=== PATIENT | female | born 1945 | race Caucasian/White ===

== ENCOUNTER 2018-07-19 13:27 | Observation (INO) ==
--- NOTE | 2018-07-19 14:49 | ED ---
HPI General Chief complaint: Dizziness Stated complaint: Dizziness/Head Complaint Time Seen by Provider: 07/19/18 14:20 Source: patient Mode of arrival: ambulatory Limitations: no limitations History of Present Illness HPI narrative: 73yo F with PMH of COPD, vertigo here with c/o episodes of lightheadedness and near syncope since head injury 06/23/18. Said she hit her head on glass and then hyperextended her neck and since then has been having these symptoms. Said she feels off balance and has neck pain. Said last episode was today when she was putting ornaments up, she felt lightheaded and almost passed out but did not. She said this does not feel like the room spinning she has with her vertigo. Denies any chest pain, sob, vomiting, abdominal pain, focal weakness or numbness. Related Data Home Medications Medication Instructions Recorded Confirmed aspirin [Aspir-81] 81 mg PO DAILY 04/23/18 07/19/18 coenzyme Q10 [Co Q-10] 1 tab PO DAILY 04/23/18 07/19/18 fluticasone-vilanterol [Breo 1 inh INHALATION DAILY 04/23/18 07/19/18 Ellipta] metoprolol tartrate 50 mg PO DAILY 04/23/18 07/19/18 omega 6-tre-shw-fish oil [Fish Oil] 1,000 mg PO DAILY 04/23/18 07/19/18 oxybutynin chloride 5 mg PO BID 04/23/18 07/19/18 albuterol sulfate 1 inh INHALATION Q4-6H PRN 07/19/18 07/19/18 Allergies Allergy/AdvReac Type Severity Reaction Status Date / Time amoxicillin Allergy Severe Rash, Verified 07/19/18 14:05 Generalized clavulanic acid Allergy Severe Rash Verified 07/19/18 14:05 celecoxib AdvReac Severe GI BLEED Verified 07/19/18 14:05 Review of Systems ROS: all other systems reviewed are negative PMFSH Social History Social History Substance History: No History of Abuse Second Hand Smoke Exposure: No Smoking Status: Current every day smoker Tobacco Type: Cigarettes How Often Do You Have a Drink Containing Alcohol: Monthly or less Recent Travel in [facility] within the Last 8 Weeks: No Recent Out of Country Travel within the Last 8 Weeks: No Immunization History Tetanus Immunization: >5 Years Exam Narrative Exam Narrative: GENERAL: 73yo F in mild distress. SKIN: Focused skin assessment warm/dry. HEAD: Atraumatic. Normocephalic. EYES: Pupils equal and round. No scleral icterus. No injection or drainage. ENT: No nasal bleeding or discharge. Mucous membranes pink and moist. NECK: Trachea midline. No JVD. CARDIOVASCULAR: Regular rate and rhythm. No murmur appreciated. RESPIRATORY: No accessory muscle use. Clear to auscultation. Breath sounds equal bilaterally. GASTROINTESTINAL: Abdomen soft, non-tender, nondistended. MUSCULOSKELETAL: No obvious deformities. No clubbing. No cyanosis. No edema. NEUROLOGICAL: Awake and alert. No obvious cranial nerve deficits. Motor grossly within normal limits in all extremities. Sensation intact. Normal speech. PSYCHIATRIC: Appropriate mood and affect; insight and judgment normal. Course Reevaluation(s) Reevaluation #1: 73-year-old female presents to the emergency department complaining of vertigo for nearly a month. She was initially evaluated by my attending, Dr. Zapata. We discussed this patient prior to results returning but states that even if the results were normal, she would like patient to be admitted. I had an extended discussion regarding this patient and the findings today. Currently her labs are stable. There is no evidence of systemic infection. Her CT and CTAs are without evidence of dissection or aneurysm. EKG shows sinus rhythm rate [address] elevation or depression. While in the emergency department today, she states that she has had 3 episodes of vertigo and lightheadedness while laying in bed. She also states that movement of her neck increases her vertigo but this is intermittent. She says normally her symptoms are less than 12 hours however, this is been nearly a month that she has had the symptoms. She says she did talk to her primary care physician who was going to order vestibular therapy. At this point, patient states that she is unable to drive because she is still concerned about her symptoms. I advised that she should stay for further evaluation with MRI, MRA and potentially neurologist consult. My concern is that the her symptoms are out of the ordinary for her and this is affecting her ADLs. Will admit patient for possible posterior CVA/TIA. I discussed my concerns and findings at length with her. I spoke with Dr. Doyle who agreed to the admission. Time: 18:17 Initial Documented Vital Signs Temperature 97.4 F L 07/19/18 13:51 Pulse Rate 62 07/19/18 13:51 Respiratory Rate 16 07/19/18 13:51 Blood Pressure 179/79 H 07/19/18 13:51 Pulse Oximetry 99 07/19/18 13:51 Last Documented Vital Signs Temperature 98.2 F 07/20/18 03:52 Pulse Rate 66 07/20/18 07:12 Respiratory Rate 18 07/20/18 07:12 Blood Pressure 120/59 L 07/20/18 03:52 Pulse Oximetry 95 07/20/18 07:12 Medical Decision Making MDM Narrative Medical decision making narrative: 73yo F here with more frequent episodes of dizziness since her head injury where she hyperextended her neck after hitting her neck. She has been having problems with her gait and lightheadedness as well as neck pain. Will need CTA to r/o vertebral artery injuries. Will place pt on cardiac monitoring, obtain EKG and labs. Pt will likely need to be admitted for near syncope work up given her age. Medical Screen Exam Complete: Yes Emergency Medical Condition: Yes Differential Diagnosis Differential Diagnosis: Vertebral artery dissection vs. posterior stroke vs. arrthymia vs. vertigo Lab Data Result diagrams: 07/19/18 15:00 07/19/18 15:00 Lab Results 07/19/18 07/19/18 07/19/18 Range/Units 15:00 15:00 18:00 WBC 10.0 (4.0-11.0) th/mm3 RBC 4.76 (4.00-5.30) mil/mm3 Hgb 15.4 H (11.6-15.3) gm/dL Hct 45.7 (35.0-46.0) % MCV 96.0 (80.0-100.0) fL MCH 32.2 (27.0-34.0) pg MCHC 33.6 (32.0-36.0) % RDW 13.5 (11.6-17.2) % Plt Count 244 (150-450) th/mm3 MPV 7.3 (7.0-11.0) fL Neut % (Auto) 64.2 (16.0-70.0) % Lymph % (Auto) 24.9 (9.0-44.0) % Bollinger % (Auto) 6.2 (0.0-8.0) % Eos % (Auto) 3.9 (0.0-4.0) % Baso % (Auto) 0.8 (0.0-2.0) % Neut # (Auto) 6.4 (1.8-7.7) th/mm3 Lymph # (Auto) 2.5 (1.0-4.8) th/mm3 Bollinger # (Auto) 0.6 (0.0-0.9) th/mm3 Eos # (Auto) 0.4 (0.0-0.4) th/mm3 Baso # (Auto) 0.1 (0.0-0.2) th/mm3 WBC Differential . Differential Comment Auto diff final Sodium 140 (136-145) meq/L Potassium 4.6 (3.5-5.1) meq/L Chloride 106 (98-107) meq/L Carbon Dioxide 27.8 (21.0-32.0) meq/L Anion Gap 6 (5-15) meq/L BUN 12 (7-18) mg/dL Creatinine 0.86 (0.50-1.00) mg/dL Estimated GFR 65 L (>89) mL/min Random Glucose 97 (74-106) mg/dL Calcium 9.1 (8.5-10.1) mg/dL Urine Color Yellow (Yellw/Straw) Urine Clarity Clear (Clear) Urine pH 5.0 (5.0-8.5) Ur Specific [place] 1.006 (1.002-1.035) Urine Protein Negative (Neg-Trace) mg/dL Urine Glucose (UA) Negative (Negative) mg/dL Urine Ketones Negative (Negative) mg/dL Urine Occult Blood Small H (Negative) Urine Nitrate Negative (Negative) Urine Bilirubin Negative (Negative) Urine Urobilinogen Less than 2 (Less than 2) mg/dL Ur Leukocyte Esterase Trace H (Negative) Urine RBC Less than 1 (0-3) /hpf Urine WBC 3 (0-5) /hpf Ur Squamous Epith Cells 4 (0-5) /hpf Micro UA Comment Culture not ind Ur Microscopic Review Not Reportable Urine Culture Comments Culture not ind Imaging Data Radiologist's impression: Carotid Doppler Study 07/19/18 00:00 CONCLUSION: 1. Right Internal Carotid Artery: No significant stenosis seen. 2. Left Internal Carotid Artery: Elevated velocities in the left internal carotid artery suggests a 50-69% stenosis. Head MRI 07/19/18 00:00 CONCLUSION: No acute intracranial findings. Head MRA 07/19/18 00:00 CONCLUSION: Brain MRA within normal limits. Head CT 07/19/18 14:39 CONCLUSION: 1. Negative CT Head non contrast. . Head CTA 07/19/18 14:39 CONCLUSION: 1. Negative CTA Head. . Neck CTA 07/19/18 14:39 CONCLUSION: 1. Mild atherosclerosis, without evidence for vascular dissection. 2. Moderate to severe emphysema. ECG Data EKG Prior to Arrival: No Attestation: I personally reviewed and interpreted this ECG as follows: Interpretation: NSR 62bpm. Normal axis. FL interval 138ms. TWI aVL, V2. No significant ST elevation or depression. Discharge Plan Discharge Disposition Patient Disposition: ED Admit(ED Internal Use Only) Discharge Condition Condition: Stable Discharge Order Discharge Orders: ED Use Only Admit Order (Routine); Ordered 07/19/18 Ordered By: Christina Clement Discharge Details Diagnosis: Intermittent lightheadedness, Vertigo Physicians Team ED Provider: Nery Zapata ED Midlevel Provider: Christina Clement Primary Care Provider: Prakash Joseph Attending Provider: Thao Casanova Other Providers: Sher Haider ; Desmond,Desmond Status ED Status: Left Department Discharge Information Discharge Date/Time: 07/19/18 20:38
[2018-07-19 15:22] LABS: Baso # (Auto) 0.1 th/mm3 (0.0-0.2); Baso % (Auto) 0.8 % (0.0-2.0); Eos # (Auto) 0.4 th/mm3 (0.0-0.4); Eos % (Auto) 3.9 % (0.0-4.0); Hematocrit 45.7 % (35.0-46.0); Hemoglobin 15.4 gm/dL (11.6-15.3); Lymph # (Auto) 2.5 th/mm3 (1.0-4.8); Lymph % (Auto) 24.9 % (9.0-44.0); Mean Corpuscular HGB Conc 33.6 % (32.0-36.0); Mean Corpuscular Hemoglobin 32.2 pg (27.0-34.0); Mean Platelet Volume 7.3 fL (7.0-11.0); Mono # (Auto) 0.6 th/mm3 (0.0-0.9); Mono % (Auto) 6.2 % (0.0-8.0); Neut # (Auto) 6.4 th/mm3 (1.8-7.7); Neut % (Auto) 64.2 % (16.0-70.0); Platelet Count 244 th/mm3 (150-450); Red Blood Count 4.76 mil/mm3 (4.00-5.30); Red Cell Distribution Width 13.5 % (11.6-17.2)
[2018-07-19 15:32] LABS: Calcium 9.1 mg/dL (8.5-10.1); Carbon Dioxide 27.8 meq/L (21.0-32.0); Potassium 4.6 meq/L (3.5-5.1)
--- NOTE | 2018-07-19 17:36 | CT ---
EXAM DATE: 07/19/2018 5:32 PM EST AGE/SEX: 73 years / Female INDICATIONS: Dizziness from fall one month ago. CLINICAL DATA: This is the patient's initial encounter. Patient reports that signs and symptoms have been present for 1 day and indicates a pain score of 0/10. MEDICAL/SURGICAL HISTORY: . Vertigo. None. RADIATION DOSE: 56.35 CTDI (mGy) COMPARISON: [facility], CTA HEAD W CONTRAST W 3D, 07/19/2018. . TECHNIQUE: CT of the head without contrast. Using automated exposure control and adjustment of the mA and/or kV according to patient size, radiation dose was kept as low as reasonably achievable to ob tain optimal diagnostic quality images. DICOM format image data is available electronically for revi ew and comparison. FINDINGS: Cerebrum: The ventricles are normal for age. No evidence of midline shift, mass lesion, hemorrhage or acute infarction. No extraaxial fluid collections are seen. Posterior Fossa: The cerebellum and brainstem are intact. The 4th ventricle is midline. The cerebe llopontine angle is unremarkable. Extracranial: The visualized portion of the orbits is intact. Skull: The calvaria is intact. No evidence of skull fracture. CONCLUSION: 1. Negative CT Head non contrast. . Electronically signed by: Carson Su MD Board Certified Radiologist 07/19/2018 5:34 PM EST
--- NOTE | 2018-07-19 17:47 | CT ---
EXAM DATE: 07/19/2018 5:43 PM EST AGE/SEX: 73 years / Female INDICATIONS: Dizziness from fall one month ago. CLINICAL DATA: This is the patient's initial encounter. Patient reports that signs and symptoms have been present for 1 day and indicates a pain score of 0/10. MEDICAL/SURGICAL HISTORY: . Vertigo. None. RADIATION DOSE: 8.83 CTDI (mGy) ; Combined studies COMPARISON: [facility] [place], CT HEAD W/O CONTRAST, 07/19/2018. . TECHNIQUE: Volumetric scanning was performed using a multi-row detector CT scanner during bolus infu ochoa of 80 ml Omnipaque 350 (iohexol) nonionic water-soluble contrast as a cumulative dose for multi ple exams. The data was post processed with a variety of visualization algorithms including full vo lume maximum intensity projection, multi-planar sliding thin slab reformation, curved planar reformat ion, and surface rendering techniques. Using automated exposure control and adjustment of the mA and /or kV according to patient size, radiation dose was kept as low as reasonably achievable to obtain o ptimal diagnostic quality images. DICOM format image data is available electronically for review and comparison. FINDINGS: There is excellent visualization of the major intracranial arteries out to the second-order branch ve ssels. There is no evidence for aneurysm, vessel truncation or stenosis, and no evidence for vascula r malformation. The left A1 segment is small in caliber compared to the right. CONCLUSION: 1. Negative CTA Head. . Electronically signed by: Carson Su MD Board Certified Radiologist 07/19/2018 5:45 PM EST
--- NOTE | 2018-07-19 18:06 | CT ---
EXAM DATE: 07/19/2018 5:55 PM EST AGE/SEX: 73 years / Female INDICATIONS: Dizziness and neck pain from fall one month ago. Evaluate for dissection. CLINICAL DATA: This is the patient's initial encounter. Patient reports that signs and symptoms have been present for 1 day and indicates a pain score of 7/10. MEDICAL/SURGICAL HISTORY: . Vertigo. None. RADIATION DOSE: 8.83 CTDI (mGy) ; Combined studies [place] [facility] [place]AST, 04/23/2018. . TECHNIQUE: Volumetric scanning was performed using a multirow detector CT scanner during bolus infus ion of 80 ml Omnipaque 350 (iohexol) nonionic water-soluble contrast as a cumulative dose for multip le exams. The data was postprocessed with a variety of visualization algorithms including full-volu me maximum intensity projection, multiplanar sliding thin-slab reformation, curved-planar reformation , and surface-rendering techniques. Using automated exposure control and adjustment of the mA and/or kV according to patient size, radiation dose was kept as low as reasonably achievable to obtain opti mal diagnostic quality images. DICOM format image data is available electronically for review and co mparison. Percent stenosis is calculated using the diameter of the stenotic region over the diameter of the nor mal distal internal carotid artery. FINDINGS: Aortic Arch: There is a three-vessel origin of the great vessels from the aorta. No evidence of ost ial narrowing Right Carotid: The common carotid artery is intact. The carotid bulb has a normal configuration wit hout ulceration or narrowing. The internal carotid artery lumen is smooth without stenosis. The ext ernal carotid artery is intact. Left Carotid: The common carotid artery is intact. The carotid bulb has a normal configuration with out ulceration or narrowing. The internal carotid artery lumen is smooth without stenosis. The exte rnal carotid artery is intact. Vertebrals: The vertebral arteries have a symmetric diameter. No stenotic lesions are seen. CONCLUSION: 1. Mild atherosclerosis, without evidence for vascular dissection. 2. Moderate to severe emphysema. Electronically signed by: Dontrell Charles MD Board Certified Radiologist 07/19/2018 6:04 PM EST
[2018-07-19 18:28] LABS: Bilirubin,Urine Negative (Negative); Glucose,Urine (UA) Negative (Negative); Leukocyte Esterase,Urine Trace (Negative); Nitrite,Urine Negative (Negative); Specific Gravity,Urine 1.006 (1.002-1.035); Squamous Epithelial Cell,Urine 4 /hpf (0-5)
[2018-07-19 18:29] LABS: Color,Urine Yellow (Yellw/Straw)
[2018-07-19 18:30] LABS: Clarity,Urine Clear (Clear)
[2018-07-19] MEDS ORDERED: Acetaminophen 325 MG Tablet PO PRN (18:30)
--- NOTE | 2018-07-19 19:17 | P.HPIM ---
History of Present Illness Primary Care Physician: Prakash Joseph MD Chief Complaint: Vertigo, Syncope History of Present Illness: Mrs. Peng is a 73-year-old female. She has come in secondary to vertigo with an episode of syncope. She says that about 1 month ago she was struck in the head with a door accidentally. Since this time she has had intermittent vertigo which has been inhibiting her lifestyle. She also will drive because recently she attempted to drive and she had a syncopal episode. Her vertigo episodes are triggered by the position of her head and her not chronic but intermittent. No headaches reported. No changes in vision. COPD is present at baseline. Review of Systems Constitutional: No fevers, no chills no night sweats, no fatigue, no weakness Eyes: No eye pain, no blurry vision, no loss of vision ENT: No sore throat, no ear pain, no rhinorrhea Cardiovascular: No chest pain, no tachycardia, no palpitations Respiratory: No wheezing, no cough, no shortness of breath Gastrointestinal: No abdominal pain, no black tarry stools, no bright red blood per rectum, no vomiting, no diarrhea Musculoskeletal: No joint pain, no muscle cramps, no stiffness Integumentary: No rash, no ulcers, no drainage Neurologic: No sensory loss, no loss of motor function, dizziness, vertigo, syncope Psychiatric: No behavioral changes, no hallucinations, no suicidal ideations PMFSH Family History Family History Other Arthritis Social History Social History Substance History: No History of Abuse Second Hand Smoke Exposure: Yes Smoking Status: Current every day smoker Tobacco Type: Cigarettes How Often Do You Have a Drink Containing Alcohol: Monthly or less Recent Travel in [place] within the Last 8 Weeks: No Recent Out of Country Travel within the Last 8 Weeks: No Immunization History Tetanus Immunization: >5 Years Medications and Allergies Allergies Allergy/AdvReac Type Severity Reaction Status Date / Time amoxicillin Allergy Severe Rash, Verified 07/19/18 14:05 Generalized clavulanic acid Allergy Severe Rash Verified 07/19/18 14:05 celecoxib AdvReac Severe GI BLEED Verified 07/19/18 14:05 Home Medications Medication Instructions Recorded Confirmed Type aspirin [Aspir-81] 81 mg PO DAILY 04/23/18 07/19/18 History coenzyme Q10 [Co Q-10] 1 tab PO DAILY 04/23/18 07/19/18 History fluticasone-vilanterol [Breo 1 inh INHALATION DAILY 04/23/18 07/19/18 History Ellipta] metoprolol tartrate 50 mg PO DAILY 04/23/18 07/19/18 History omega 8-vgg-hny-fish oil [Fish Oil] 1,000 mg PO DAILY 04/23/18 07/19/18 History oxybutynin chloride 5 mg PO BID 04/23/18 07/19/18 History albuterol sulfate 1 inh INHALATION Q4-6H PRN 07/19/18 07/19/18 History Active Medications: Active Medications Acetaminophen (Tylenol) 650 mg PO Q4H PRN PRN Reason: Temp > 100.4 Al Hydroxide/Mg Hydroxide (Milk Of Jennifer Scnheider) 30 ml PO Q12H PRN PRN Reason: Mild Constipation Albuterol (Duoneb Neb (Lynne)) 1 ampul NEB Q6HR WHILE AWAKE NEB LYNNE Clonidine HCl (Catapres) 0.1 mg PO Q6H PRN PRN Reason: SYS BP GREATER THAN 160 MMHG Enalaprilat (Vasotec Inj) 1.25 mg IV.PUSH Q6H PRN PRN Reason: SBP>160, DBP>90 Meclizine HCl (Antivert) 25 mg PO Q8H LYNNE Meclizine HCl (Antivert) 25 mg PO ONCE ONE Stop: 07/19/18 19:14 Ondansetron HCl (Zofran Inj) 4 mg IV.PUSH Q6H PRN PRN Reason: NAUSEA OR VOMITING Sodium Chloride (Ns Flush) 2 ml IV.FLUSH BID LYNNE Sodium Chloride (Ns Flush) 2 ml IV.FLUSH PRN PRN PRN Reason: FLUSH AFTER USING IV ACCESS Physical Exam Vital signs: Last Vital Signs Temp 97.4 F L 07/19/18 13:51 Pulse 62 07/19/18 13:51 Resp 16 07/19/18 13:51 BP 179/79 H 07/19/18 13:51 Pulse Ox 99 07/19/18 13:51 Narrative: GENERAL: NAD, A&Ox3 HEAD: Normocephalic. NECK: Supple, trachea midline. No lymphadenopathy. EYES: No scleral icterus. No injection or drainage. CARDIOVASCULAR: Regular rate and rhythm without murmurs, gallops, or rubs. RESPIRATORY: Breath sounds equal bilaterally. No accessory muscle use. GASTROINTESTINAL: Abdomen soft, non-tender, nondistended. MUSCULOSKELETAL: No cyanosis, or edema. SKIN: Warm and dry. NEURO: No focal neurological deficits. Results Labs CBC & Chem 7: 07/19/18 15:00 07/19/18 15:[address] 07/19/18 14:39 CONCLUSION: 1. Negative CT Head non contrast. . Head CTA 07/19/18 14:39 CONCLUSION: 1. Negative CTA Head. . Neck CTA 07/19/18 14:39 CONCLUSION: 1. Mild atherosclerosis, without evidence for vascular dissection. 2. Moderate to severe emphysema. Caprini VTE Risk Assessment Caprini VTE Risk Assessment: No/Low Risk (score <= 1) Caprini Risk Assessment Model: Point Value = 1 Point Value = 2 Point Value = 3 Point Value = 5 Age 41-60 Minor surgery BMI > 25 kg/m2 Swollen legs Varicose veins or History of unexplained or recurrent spontaneous Oral contraceptives or hormone replacement Sepsis (< 1 month) Serious lung disease, including pneumonia (< 1 month) Abnormal pulmonary function Acute myocardial infarction Congestive heart failure (< 1 month) History of inflammatory bowel disease Medical patient at bed rest Age 61-74 Arthroscopic surgery Major open surgery (> 45 min) Laparoscopic surgery (> 45 min) Malignancy Confined to bed (> 72 hours) Immobilizing plaster cast Central venous access Age >= 75 History of VTE Family history of VTE Factor V Leiden Prothrombin [id number] Lupus anticoagulant Anticardiolipin antibodies Elevated serum homocysteine Heparin-induced thrombocytopenia Other congenital or acquired thrombophilia Stroke (< 1 month) Elective arthroplasty Hip, pelvis, or leg fracture Acute spinal cord injury (< 1 month) Prophylaxis Regimen: Total Risk Factor Score Risk Level Prophylaxis Regimen 0-1 Low Early ambulation 2 Moderate Order ONE of the following: *Sequential Compression Device (SCD) *Heparin 5000 units SQ BID 3-4 Higher Order ONE of the following medications: *Heparin 5000 units SQ TID *Enoxaparin/Lovenox 40 mg SQ daily (WT < 150 kg, CrCl > 30 mL/min) *Enoxaparin/Lovenox 30 mg SQ daily (WT < 150 kg, CrCl > 10-29 mL/min) *Enoxaparin/Lovenox 30 mg SQ BID (WT < 150 kg, CrCl > 30 mL/min) AND/OR *Sequential Compression Device (SCD) 5 or more Highest Order ONE of the following medications: *Heparin 5000 units SQ TID (Preferred with Epidurals) *Enoxaparin/Lovenox 40 mg SQ daily (WT < 150 kg, CrCl > 30 mL/min) *Enoxaparin/Lovenox 30 mg SQ daily (WT < 150 kg, CrCl > 10-29 mL/min) *Enoxaparin/Lovenox 30 mg SQ BID (WT < 150 kg, CrCl > 30 mL/min) AND *Sequential Compression Device (SCD) Assessment and Plan Plan 73-year-old female admitted secondary to vertigo with acute episode of syncope Vertigo Acute syncopal episode Possible benign positional vertigo versus TIA versus seizure versus undiagnosed stroke EEG MRI MRA Carotid ultrasound Echocardiogram Neurology consult Start meclizine PT COPD Continue DuoNeb scheduled HTN Urgency on baseline Hypertension Continue baseline treatment Follow blood pressures Adjust treatments as needed Nicotine dependence NicoDerm Patient counseled to quit DVT prophylaxis SCDs
--- NOTE | 2018-07-19 20:01 | MR ---
EXAM DATE: 07/19/2018 7:56 PM EST AGE/SEX: 73 years / Female INDICATIONS: Vertigo. Dizziness for one month. CLINICAL DATA: This is the patient's initial encounter. Patient reports that signs and symptoms have been present for 1 month and indicates a pain score of 3/10. MEDICAL/SURGICAL HISTORY: Hyperparathyroidism. Appendectomy. Cholecystectomy. Hysterectomy. COMPARISON: No prior exams available for comparison. TECHNIQUE: Multiplanar, multisequence examination of the brain was performed without contrast. FINDINGS: Cerebrum: The ventricles are normal for age. No evidence of midline shift, mass lesion, hemorrhage or acute infarction. No extraaxial fluid collections are seen. The pituitary gland and suprasellar cistern are normal in configuration. White Matter: Within normal limits for age. Posterior Fossa: The cerebellum and brainstem are intact. The 4th ventricle is midline. The cerebel lopontine angle is unremarkable. The cerebellar tonsils are normal in position. Diffusion Imaging: No focal areas of restricted diffusion are seen. No evidence of acute infarction . Extracranial: The visualized portions of the orbits and paranasal sinuses are unremarkable. CONCLUSION: No acute intracranial findings. Electronically signed by: Silvano Evangelista MD Board Certified Radiologist 07/19/2018 8:00 PM EST
--- NOTE | 2018-07-19 20:04 | MR ---
EXAM DATE: 07/19/2018 7:56 PM EST AGE/SEX: 73 years / Female INDICATIONS: Vertigo. Dizziness for one month. CLINICAL DATA: This is the patient's initial encounter. Patient reports that signs and symptoms have been present for 1 month and indicates a pain score of 2/10. MEDICAL/SURGICAL HISTORY: Hypertension. Appendectomy. Cholecystectomy. Hysterectomy. COMPARISON: No prior exams available for comparison. TECHNIQUE: 3D [id number] MRA was performed. Source images, multiplanar STS MIP, and 3D volum e MIP reconstructions were reviewed. FINDINGS: Attenuated A1 segment of the left anterior cerebral artery. Likely normal anatomic variant. No eviden ce of major vessel occlusion or proximal high-grade stenosis. No evidence of aneurysm. CONCLUSION: Brain MRA within normal limits. Electronically signed by: Silvano Evangelista MD Board Certified Radiologist 07/19/2018 8:03 PM EST
--- NOTE | 2018-07-19 23:14 | US ---
EXAM DATE: 07/19/2018 11:00 PM EST AGE/SEX: 73 years / Female INDICATIONS: Syncope. CLINICAL DATA: This is the patient's initial encounter. Patient reports that signs and symptoms have been present for 2 days and indicates a pain score of 0/10. MEDICAL/SURGICAL HISTORY: Vertigo. None. COMPARISON: No prior exams available for comparison. VELOCITY PARAMETERS: ICA/CCA Ratio: Right 1.6 , Left 1.4 ICA: Right 117 cm/sec, Left 156 cm/sec CCA: Right 70 cm/sec, Left 107 cm/sec ECA: Right 117 cm/sec, Left 81 cm/sec Vertebral: Right 44 cm/sec antegrade, Left 66 cm/sec antegrade FINDINGS: Right Carotid: No significant plaque is visualized.The waveforms are within normal limits. Left Carotid: No significant plaque is visualized. The waveforms are within normal limits. Other: None. CONCLUSION: 1. Right Internal Carotid Artery: No significant stenosis seen. 2. Left Internal Carotid Artery: Elevated velocities in the left internal carotid artery suggests a 50-69% stenosis. Electronically signed by: Joseph Rizo MD Board Certified Radiologist 07/19/2018 11:12 PM EST
[2018-07-20] MEDS ORDERED: Morphine Inj 4 MG/ML Vial IV.PUSH ONE (11:30)
--- NOTE | 2018-07-20 14:15 | P.PNIM ---
Subjective Interval history: 73-year-old female admitted with episode of dizziness and syncope. Patient seen and examined, doing better, still having some dizziness with turning over in bed, denies shortness of breath or chest pain denies palpitations, still having neck pain and headache post walking into a sliding glass door hitting her head and hyperextending her neck, still having some pain from that. Physical Exam Vital signs: Last Vital Signs Temp 97.7 F 07/20/18 12:24 Pulse 66 07/20/18 12:24 Resp 18 07/20/18 12:24 BP 129/61 07/20/18 12:24 Pulse Ox 93 L 07/20/18 12:24 Intake & Output 07/18/18 07/19/18 07/20/18 07/21/18 06:59 06:59 06:59 06:59 Weight 103.6 kg Well-developed well-nourished pleasant 73-year-old white female Awake alert oriented no distress Heart S1-S2 regular Lungs clear bilateral no wheezes no rhonchi Abdomen soft nondistended positive bowel sounds Extremities no clubbing cyanosis no edema Results Labs CBC & Chem 7: 07/19/18 15:00 07/19/18 15:00 Imaging Imaging: Impressions Carotid Doppler Study 07/19/18 00:00 CONCLUSION: 1. Right Internal Carotid Artery: No significant stenosis seen. 2. Left Internal Carotid Artery: Elevated velocities in the left internal carotid artery suggests a 50-69% stenosis. Head MRI 07/19/18 00:00 CONCLUSION: No acute intracranial findings. Head MRA 07/19/18 00:00 CONCLUSION: Brain MRA within normal limits. Head CT 07/19/18 14:39 CONCLUSION: 1. Negative CT Head non contrast. . Head CTA 07/19/18 14:39 CONCLUSION: 1. Negative CTA Head. . Neck CTA 07/19/18 14:39 CONCLUSION: 1. Mild atherosclerosis, without evidence for vascular dissection. 2. Moderate to severe emphysema. Assessment and Plan Plan SYNCOPE - orthostatics done negative, VERTIGO BPPV - pt eval and tx, CERVICAL NECK PAIN - post recent closed head trauma and neck hyper extension, pain control and mri c spine COPD stable - cont home meds stable HTN urgency - better, cont home meds NICOTINE dependence - dc tobacco counseled and nicoderm DVT prophylaxis DISPO - continue PT, Neuro consult, possible dc home w pt vs rehab when cleared by neuro Progress Note: Quality VTE Deep Vein Thrombosis/Pulmonary Embolism Present on Admission: No
--- NOTE | 2018-07-20 15:32 | ECG ---
Date Performed: 07/19/2018 Time Performed: 15:00:14 PTAGE: 73 years EKG: Sinus rhythm Since the previous tracing, no significant change noted NORMAL ECG PREVIOUS TRACING : 07/09/2014 00.09 DOCTOR: Kyle Brito Interpretating Date/Time 07/20/2018 15:29:57
--- NOTE | 2018-07-20 16:19 | MR ---
EXAM DATE: 07/20/2018 4:11 PM EST AGE/SEX: 73 years / Female INDICATIONS: Pain. Hyperextension injury. CLINICAL DATA: This is the patient's initial encounter. Patient reports that signs and symptoms have been present for 1 day and indicates a pain score of 0/10. MEDICAL/SURGICAL HISTORY: Hypertension. Tonsillectomy. Appendectomy. Cholecystectomy. Hyster ectomy. COMPARISON: [facility], CTA NECK W CONTRAST W 3D, 07/19/2018. . TECHNIQUE: Multiplanar, multisequence MRI examination of the cervical spine was performed without co ntrast. FINDINGS: Vertebrae: Normal vertebral body height. Homogeneous marrow signal. Alignment: Normal. Cord: Normal configuration and signal. Post Fossa: The cerebellar tonsils are normal in position. C2-C3: The thecal sac has a normal configuration. There is no evidence of disc herniation or spinal canal stenosis. The neural foramina are patent bilaterally. C3-C4: There is mild uncinate ridging present. There is no significant spinal stenosis. C4-C5: Mild uncinate ridging with minimal spinal stenosis. Neural foramen are adequate. C5-C6: The thecal sac has a normal configuration. There is no evidence of disc herniation or spinal canal stenosis. The neural foramina are patent bilaterally. C6-C7: Minimal eccentric bulging to the left. Neural foramen are adequate. C7-T1: No epidural impressions seen. The signal intensity in the interspinous ligaments appears homogeneous. Controlled flexion-extension films may be of benefit to exclude instability. I don't see evidence for significant ligamentous injury. CONCLUSION: 1. Mild degenerative changes, please see above Electronically signed by: Dawit Velazquez MD Board Certified Radiologist 07/20/2018 4:18 PM EST
[2018-07-20] MEDS ORDERED: Ketorolac Inj 30 MG/ML (IVP) Vial IV.PUSH ONE (16:32)
--- NOTE | 2018-07-20 17:47 | ECHRPT ---
Indication: Syncope CONCLUSIONS The left ventricular systolic function is normal with an estimated ejection fraction in the range of 55-60%. Wall thickness is measured at the upper limits of normal. Trace mitral valve regurgitation. Trace aortic valve regurgitation. There is trace tricuspid valve regurgitation. BP: / HR: Rhythm: MEASUREMENTS (Male / Female) Normal Values Technical Quality:Fair 2D ECHO LV Diastolic Diameter PLAX 3.9 cm 4.2 - 5.9 / 3.9 - 5.3 cm LV Systolic Diameter PLAX 2.7 cm IVS Diastolic Thickness 1.1 cm 0.6 - 1.0 / 0.6 - 0.9 cm LVPW Diastolic Thickness 1.1 cm 0.6 - 1.0 / 0.6 - 0.9 cm LV Relative Wall Thickness 0.6 RV Internal Dim ED PLAX 2.9 cm LVOT Diameter 1.9 cm Aortic Root Diameter 3.2 cm LA Systolic Diameter LX 3.1 cm 3.0 - 4.0 / 2.7 - 3.8 cm DOPPLER AV Peak Velocity 171.0 cm/s AV Peak Gradient 11.7 mmHg LVOT Peak Velocity 144.0 cm/s LVOT Peak Gradient 8.3 mmHg AV Area Cont Eq pk 2.4 cm Mitral E Point Velocity 84.9 cm/s Mitral A Point Velocity 97.2 cm/s Mitral E to A Ratio 0.9 LV E' Lateral Velocity 9.3 cm/s Mitral E to LV E' Lateral Ratio 9.2 LV E' Septal Velocity 6.2 cm/s Mitral E to LV E' Septal Ratio 13.6 TR Peak Velocity 274.0 cm/s TR Peak Gradient 30.0 mmHg Right Atrial Pressure 10.0 mmHg Pulmonary Artery Systolic Pressu 40.0 mmHg Right Ventricular Systolic Press 40.0 mmHg PV Peak Velocity 119.0 cm/s PV Peak Gradient 5.7 mmHg FINDINGS LEFT VENTRICLE Normal left ventricular size. Wall thickness is measured at the upper limits of normal. The left ventricular systolic function is normal with an estimated ejection fraction in the range of 55-60%. No regional wall motion abnormalities are present. RIGHT VENTRICLE Normal right ventricular size and systolic function. LEFT ATRIUM The left atrial size is normal. RIGHT ATRIUM The right atrial size is normal. ATRIAL SEPTUM Normal atrial septal thickness without atrial level shunting by limited color doppler interrogation. AORTA The aortic root and proximal ascending aorta are normal in size on limited imaging. MITRAL VALVE Grossly normal Trace mitral valve regurgitation. No mitral valve stenosis. AORTIC VALVE Trileaflet aortic valve. No aortic valve stenosis. Trace aortic valve regurgitation. TRICUSPID VALVE Grossly normal There is trace tricuspid valve regurgitation. The estimated pulmonary arterial pressure is 40 mmHg. PULMONARY VALVE No pulmonary valve regurgitation or stenosis. VESSELS The inferior vena cava is normal in size. PERICARDIUM No pericardial effusion. Pako De La Vega DO (Electronically Signed) Final Date:20 July 2018 17:46
--- NOTE | 2018-07-20 20:23 | MB ---
cc: Sher Haider MD, PhD DATE: 07/20/2018 REASON FOR CONSULTATION: Vertigo. HISTORY OF PRESENT ILLNESS: Ms. Peng is a very nice 73-year-old female who for the past 19 days has had intermittent vertigo. It is a spinning feeling, worse if she looks up or turns her head. She has tinnitus as well. She denies any other neurological symptoms. She has not had any double vision, slurred speech, focal weakness or numbness. She states she had similar vertigo in November, but it resolved after about 1 day. She also notices neck pain and posterior headache. PAST MEDICAL HISTORY: Noncontributory. MEDICATIONS: Currently: 1. Tylenol. 2. Merritt as needed for pain. 3. Milk of magnesia. 4. Catapres. 5. Vasotec. 6. Antivert. 7. Habitrol. 8. Zofran p.r.n. 9. Flexeril p.r.n. NEUROLOGICAL EXAMINATION: VITAL SIGNS: Blood pressure is 129/60, pulse 81, respirations 14, temperature 98 degrees. NEUROLOGIC: Higher cortical functions are normal. Cranial nerves intact. The extraocular movements are normal. There is no nystagmus. Pupils are equal and reactive. exam is normal. Motor exam is 5/5 in all groups. Reflexes are symmetric. There is no dysmetria. MRI of the brain is within normal limits. MRI cervical spine, mild degenerative changes are identified at C4-C5 and C3-4 with no evidence of any significant stenosis. Neck CTA: Mild atherosclerosis, no evidence of dissection. A CTA of the head is within normal limits. Head MRA is normal. Carotid ultrasound: No significant stenosis, 50-69% left carotid artery stenosis by velocity; however, CTA of the neck showed no significant carotid stenosis. IMPRESSION: Vertigo, probable peripheral vertigo. RECOMMENDATIONS: Trial of meclizine. Physical therapy for vestibular rehabilitation. Sher Haider MD, PhD KALIA/eitan/ , 07:24 PM , 07:32 PM
[2018-07-21 07:06] VITALS: RESP 18
--- NOTE | 2018-07-21 08:15 | MG ---
cc: Min Mancilla MD EEG Record # [id number]. 8-9 Hz of activity, good anteroposterior gradient. Good EEG variability reactivity. Generalized slowing with transition into drowsy state followed by stage I sleep with background theta and generalized paroxysmal bursts of delta activity. Occasional eye movement artifact. Single lead EKG showing sinus rhythm with occasional premature contractions. INTERPRETATION: Normal awake sleep electroencephalogram. Clinical correlation. MD MOE Price/nohelia , 07:51 AM , 07:54 AM
--- NOTE | 2018-07-21 11:33 | P.DS ---
DS: Providers Date of admission: 07/19/18 18:29 Primary care physician: Prakash Joseph MD Consults: 07/19/18 18:32 Consult to Neurology Routine Consulting Provider: Sher Haider Reason for Consultation: Vertigo for one month (since fall), one syncopal episode - evaluating for possible undiagnosed CVA Spoke with:: DOMONIQUE Date Notified:: 07/19/18 Time Notified:: 18:47 Ordering Provider: LLUVIA 07/20/18 08:34 HUB Only Consult Order Routine Consulting Provider: Desmond Logan Brief History from admission: Mrs. Peng is a 73-year-old female. She has come in secondary to vertigo with an episode of syncope. She says that about 1 month ago she was struck in the head with a door accidentally. Since this time she has had intermittent vertigo which has been inhibiting her lifestyle. She also will drive because recently she attempted to drive and she had a syncopal episode. Her vertigo episodes are triggered by the position of her head and her not chronic but intermittent. No headaches reported. No changes in vision. COPD is present at baseline. DS: Summary Patient was admitted and evaluated by Neurology and underwent complete workup including carotids and echo, mri, mra, as well as cervical spine mri with finding of mild degenerative changes. Patient worked with PT and had significant BPPV, after meclizine and flexeril, she is doing much better today and ambulating better, she is clinically stable for discharge home and outpatient followup. Discussed followup , diet , activity and medications and all questions answered. DC diagnosis BPPV SYNCOPE vasovagal CERVICALGIA w DDD COPD HTN URGENCY NICOTINE DEPENDENCE Time spent discussing smoking cessation with patient: 3 to 10 minutes Time Spent with Patient Total time spent providing and/or coordinating discharge services: Greater than 30 minutes Status at Discharge Functional status at discharge: independent ambulation Overall status at discharge: patient is progressing back to baseline Quality: VTE Deep Vein Thrombosis/Pulmonary Embolism Present on Admission: No Exam Narrative Exam Narrative: aaox3 nad heart s1s2 reg lungs clear no wrr abd soft nondt pos bs ext no edema, no calf tenderness Results Impressions ITS Impressions Carotid Doppler Study 07/19/18 00:00 CONCLUSION: 1. Right Internal Carotid Artery: No significant stenosis seen. 2. Left Internal Carotid Artery: Elevated velocities in the left internal carotid artery suggests a 50-69% stenosis. Head MRI 12/18/18 00:00 CONCLUSION: No acute intracranial findings. Head MRA 07/19/18 00:00 CONCLUSION: Brain MRA within normal limits. Head CT 07/19/18 14:39 CONCLUSION: 1. Negative CT Head non contrast. . Head CTA 07/19/18 14:39 CONCLUSION: 1. Negative CTA Head. . Neck CTA 07/19/18 14:39 CONCLUSION: 1. Mild atherosclerosis, without evidence for vascular dissection. 2. Moderate to severe emphysema. Cervical Spine MRI 07/20/18 00:00 CONCLUSION: 1. Mild degenerative changes, please see above Discharge Plan Discharge Disposition Patient Disposition: Discharge Home Discharge Condition Condition: Stable Discharge Order Discharge Orders: Discharge Order (Routine); Ordered 07/21/18 Ordered By: Thao Casanova Discharge Details Discharge Comment: ok to discharge home w home pt for vestibular rehab if ambulating ok w pt today Physicians Team Primary Care Provider: Prakash Joseph Attending Provider: Thao Casanova Other Providers: Sher Haider ; Desmond Logan Rxs /Orders / Referrals /Forms Prescriptions: New nicotine 14 mg/24 hr Patch 24 Hour 1 patch Transdermal DAILY Qty: 15 RF: 0 cyclobenzaprine 10 mg tablet 10 mg PO TID PRN (Reason: muscle spasm) Qty: 30 RF: 0 meclizine 25 mg Tablet 25 mg PO Q8H PRN (Reason: Vertigo) Qty: 30 RF: 0 Continue coenzyme Q10 [Co Q-10] 10 mg Capsule 1 tab PO DAILY RF: 0 aspirin [Aspir-81] 81 mg Tablet,Delayed Release (Dr/Ec) 81 mg PO DAILY RF: 0 metoprolol tartrate 50 mg Tablet 50 mg PO DAILY RF: 0 oxybutynin chloride 5 mg Tablet 5 mg PO BID RF: 0 omega 0-oaj-ngl-fish oil [Fish Oil] 1,000 mg (120 mg-180 mg) Capsule 1,000 mg PO DAILY RF: 0 fluticasone-vilanterol [Breo Ellipta] 100-25 mcg/dose Blister With Device 1 inh INHALATION DAILY RF: 0 albuterol sulfate 90 mcg/actuation Aerosol Powdr Breath Activated 1 inh INHALATION Q4-6H PRN (Reason: Shortness Of Breath) RF: 0 Referrals: Prakash Joseph MD [Primary Care Provider] - See Instructions ( Please call the physician's office to book the appointment to be seen within [2-3d].) Status ED Status: Left Department
--- NOTE | 2018-07-21 11:45 | P.DCO ---
Physical Therapy Order: Evaluate and treat Case Management Consult Case Management Consult-Home Health: Yes I have seen patient Adelia Peng on 07/21/18. My clinical findings support the need for the requested home health care services because: Deconditioned with increased weakness and High risk of falls I certify that my clinical findings support that this patient is homebound because: Unsteady gait/balance and Unsafe to leave home unassisted
[2018-07-21 11:56] VITALS: BP 136/63; PULSE 80; TEMP 97.8; O2SAT 93
== END 2018-07-21 14:35 | disposition home or self-care (01) ==
LOC: NEPD 13:27 → NEDA 13:27 → NEPFCDU 20:36
PROVIDERS: ADMIT Internal Medicine; ATTEND Internal Medicine